=== PATIENT | female | born 1965 | race Caucasian/White ===

== ENCOUNTER 2018-03-03 14:27 | Outpatient (CLI) | payer OTHER | END 2018-03-03 14:51 | disposition home or self-care (01) | LOC: NUCLEAR 14:27 | DX: M81.0 Age-related osteoporosis without current pathological fracture (principal); M85.88 Other specified disorders of bone density and structure, other site; N95.1 Menopausal and female climacteric states ==

== ENCOUNTER → 2021-05-23 13:42 | Outpatient (CLI) | payer OTHER | END | disposition home or self-care (01) | LOC: NUCLEAR 13:00 | DX: M81.0 Age-related osteoporosis without current pathological fracture (principal) ==

== ENCOUNTER 2021-11-01 08:00 | Outpatient (CLI) | payer OTHER | END 2021-11-01 08:30 | disposition home or self-care (01) | LOC: PPH VACUNA 08:00 | PROVIDERS: ATTEND Emergency Medicine Pediatric Emergency Medicine | DX: Z23 Encounter for immunization (principal) ==

== ENCOUNTER 2023-09-18 13:25 | Outpatient (CLI) | payer OTHER | END 2023-09-18 13:27 | disposition home or self-care (01) | LOC: NUCLEAR 13:25 | PROVIDERS: ATTEND Internal Medicine | DX: M81.8 Other osteoporosis without current pathological fracture (principal); D47.2 Monoclonal gammopathy; M54.50 Low back pain, unspecified; E03.9 Hypothyroidism, unspecified; F41.9 Anxiety disorder, unspecified; I11.9 Hypertensive heart disease without heart failure; E16.2 Hypoglycemia, unspecified; R73.09 Other abnormal glucose ==